=== PATIENT | male | born 1990 | race Two or more races ===

== ENCOUNTER 2016-07-15 12:15 | Emergency (ER) | payer MEDICAID, OTHER ==
[~2016-07-15] VITALS: Ht 170.2 cm; Wt 65.8 kg
[2016-07-15 12:21] VITALS: BP_SYST 131
--- NOTE | 2016-07-15 12:26 | NUR ---
Patient to ER bed 8 to gown for evaluation. Side rails up. Report given to Francisco Javier BENZ.
--- NOTE | 2016-07-15 12:30 | NUR ---
Pt c/o left middle finger pain with laceration after cutting it on the rotor for bicycle brake. +ROM
--- NOTE | 2016-07-15 12:30 | NUR ---
Dr. Jameson at bedside to assessment.
--- NOTE | 2016-07-15 12:31 | NUR ---
Pt soaking left middle finger in NS with betadine solution. Tolerating well.
[2016-07-15] MEDS ORDERED: BACITRACIN 1 GM OINT TP ONE ×2 (12:45→14:08)
[2016-07-15] MEDS ORDERED: SODIUM BICARBONATE 8.4% VIAL 50 MEQ/50 ML VIAL INJ ONE (12:45)
[2016-07-15] MEDS ORDERED: IBUPROFEN 600 MG TABLET PO ONE (12:45)
[2016-07-15] MEDS ORDERED: LIDOCAINE 1% 10 MG/ML, 20 ML MDV IJ ONE (12:45)
--- NOTE | 2016-07-15 13:30 | NUR ---
Left 3rd distal philange irrigated with 500mL.
--- NOTE | 2016-07-15 13:45 | NUR ---
Patient has a 2 cm laceration to left 3rd distal philange. Dr. Jameson applied sutures using sterile technique. Edges well approximated. Site cleansed with NS. Dressing of gauze applied to site. No bleeding noted. Pt tolerated well.
[2016-07-15 14:00] VITALS: BP_SYST 120
--- NOTE | 2016-07-15 14:00 | NUR ---
Patient given written and verbal discharge instructions and verbalizes understanding. ER MD discussed with patient the results and treatment provided. Patient in stable condition. ID arm band removed. Rx of Augmentin and Motrin given. Patient educated on pain management and to follow up with PMD. Pain Scale 2/10, tolerable. Opportunity for questions provided and answered.
== END 2016-07-15 14:00 | disposition home or self-care (01) ==
LOC: SED 12:15
DX: S61.213A Laceration without foreign body of left middle finger without damage to nail, initial encounter (principal); W31.89XA Contact with other specified machinery, initial encounter; Y93.89 Activity, other specified; Y99.8 Other external cause status; Y92.89 Other specified places as the place of occurrence of the external cause
CPT/HCPCS: 12002; 73140; 99284; J2001

== ENCOUNTER 2017-03-25 09:20 | Emergency (ER) | payer SELFPAY ==
[~2017-03-25] VITALS: Ht 170.2 cm; Wt 65.8 kg
[2017-03-25 09:27] VITALS: BP_SYST 131
[2017-03-25 10:42] VITALS: BP_SYST 128
[2017-03-25] MEDS ORDERED: ACETAMINOPHEN 500 MG TABLET PO ONE (10:45)
== END 2017-03-25 10:40 | disposition home or self-care (01) ==
LOC: SED 09:20
DX: S01.01XA Laceration without foreign body of scalp, initial encounter (principal); F17.200 Nicotine dependence, unspecified, uncomplicated; W18.09XA Striking against other object with subsequent fall, initial encounter; Y93.51 Activity, roller skating (inline) and skateboarding; Y92.89 Other specified places as the place of occurrence of the external cause; Y99.8 Other external cause status
CPT/HCPCS: 99283

== ENCOUNTER 2021-03-01 02:05 | Emergency (ER) | payer MEDICAID ==
[~2021-03-01] VITALS: Ht 167.6 cm; Wt 77.1 kg
[2021-03-01 02:20] VITALS: BP_SYST 115
--- NOTE | 2021-03-01 02:20 | NUR ---
Patient to ER bed 5 to gown for evaluation. Side rails up. Report given to DEMAR TORRES.
--- NOTE | 2021-03-01 02:54 | NUR ---
DR. OCHOA AT BEDSIDE FOR EVALUATION.
[2021-03-01] MEDS ORDERED: DEXAMETHASONE SOD PHOSPHATE 10 MG/ML VIAL IVP ONE (03:15)
[2021-03-01] MEDS ORDERED: KETOROLAC TROMETHAMINE 30 MG VIAL IVP ONE (03:15)
[2021-03-01] MEDS ORDERED: DIAZ5TAB PO (04:31)
[2021-03-01] MEDS ORDERED: PRED20TA PO (04:31)
[2021-03-01] MEDS ORDERED: NAPR-686 PO (04:31)
[2021-03-01 04:43] VITALS: BP_SYST 115
--- NOTE | 2021-03-01 04:44 | NUR ---
Note undone in EDM - 03/01/21 at 0446 by AGNES Patient given written and verbal discharge instructions and verbalizes understanding. ER discussed with patient the results and treatment provided. Patient in stable condition. ID arm band removed. IV catheter removed intact and dressing applied, no active bleeding. Rx of given. Patient educated on pain management and to follow up with PMD. Pain Scale 7/10. Opportunity for questions provided and answered. Medication side effect fact sheet provided.
--- NOTE | 2021-03-01 04:44 | NUR ---
Patient given written and verbal discharge instructions and verbalizes understanding. ER MD discussed with patient the results and treatment provided. Patient in stable condition. ID arm band removed. IV catheter removed intact and dressing applied, no active bleeding. Rx of Valium, Naproxen and Prednisone given. Patient educated on pain management and to follow up with PMD. Pain Scale 0/10 Opportunity for questions provided and answered. Medication side effect fact sheet provided.
== END 2021-03-01 04:43 | disposition home or self-care (01) ==
LOC: SED 02:05
DX: M54.16 Radiculopathy, lumbar region (principal)
CPT/HCPCS: 96374; 96375; 99284; J1100; J1885